=== PATIENT | male | born 1950 | race Asian ===

== ENCOUNTER 2021-11-18 13:52 | Emergency (ER) | payer OTHER ==
[~2021-11-18] VITALS: Ht 170.2 cm; Wt 64.4 kg
[2021-11-18 14:00] VITALS: BP 148/59; TEMP 97
[2021-11-18 14:53] LABS: PLATELET COUNT 258 K/uL (142-355)
[2021-11-18 14:57] LABS: POTASSIUM 3.5 mmol/L (3.6-5.2)
== END 2021-11-18 18:00 | disposition home or self-care (01) ==
LOC: ED 13:52
PROVIDERS: Emergency Medicine
DX: K29.60 Other gastritis without bleeding (principal); D72.828 Other elevated white blood cell count
CPT/HCPCS: 80053; 81002; 83605; 83690; 85027; 96360; 96374; 96375; 99283; J2405; Q9963

== ENCOUNTER 2022-09-02 16:44 | Observation (INO) | payer OTHER ==
[~2022-09-02] VITALS: Ht 170.2 cm; Wt 66.8 kg
[2022-09-02 16:48] VITALS: BP 123/84; TEMP 98.6
[2022-09-02 17:23] LABS: PLATELET COUNT 275 K/uL (142-355)
[2022-09-02 17:32] LABS: POTASSIUM 3.9 mmol/L (3.6-5.2)
[2022-09-02 20:00] VITALS: BP 194/79; TEMP 98.1
[2022-09-02 21:25] VITALS: BP 184/73; TEMP 98.7
[2022-09-03] VITALS (8 sets, daily range): BP systolic 122–196; BP diastolic 60–80; TEMP 98–99.2
[2022-09-03 05:29] LABS: PLATELET COUNT 262 K/uL (142-355)
[2022-09-03 05:51] LABS: POTASSIUM 3.5 mmol/L (3.6-5.2)
[2022-09-03] MEDS ORDERED: COZAAR100 MG PO (20:27)
[2022-09-03] MEDS ORDERED: HYDROCHLOROT12.5 M1 PO (20:28)
[2022-09-03] MEDS ORDERED: ONDA4TAB3 PO (20:29)
[2022-09-03] MEDS ORDERED: VITAMIN B COMPL1 TAB PO (20:34)
[2022-09-03] MEDS ORDERED: D3-5050000 UNIT PO (20:34)
[2022-09-04 03:51] VITALS: BP 173/71; TEMP 98.7
[2022-09-04 04:10] VITALS: BP 166/68
[2022-09-04 05:08] LABS: PLATELET COUNT 219 K/uL (142-355)
[2022-09-04 05:17] LABS: POTASSIUM 3.4 mmol/L (3.6-5.2)
[2022-09-04 08:00] VITALS: BP 185/77; TEMP 97.8
[2022-09-04 12:00] VITALS: BP 197/77; TEMP 98
[2022-09-04] MEDS ORDERED: levaquin PO (13:05)
== END 2022-09-04 15:44 | disposition home or self-care (01) ==
LOC: ED 16:44 → EDIP 19:34 → MED/SURG 09-03 17:13
PROVIDERS: ADMIT Family Medicine; ATTEND Internal Medicine
DX: N30.80 Other cystitis without hematuria (principal); D72.828 Other elevated white blood cell count; E27.8 Other specified disorders of adrenal gland; R10.9 Unspecified abdominal pain; I10 Essential (primary) hypertension; N17.8 Other acute kidney failure; Z79.899 Other long term (current) drug therapy
CPT/HCPCS: 36415; 80053; 81000; 83036; 83690; 83735; 84484; 85027; 87088; 93005; 96361; 96365; 96367; 96375; 99221; 99284; G0378; J1815; J2405; J2543; J2765; J3475